=== PATIENT | male | born 1950 | race Caucasian/White ===

== ENCOUNTER 2017-11-07 13:07 | Inpatient (IN) | payer OTHER ==
[~2017-11-07] VITALS: Ht 180.3 cm; Wt 98.7 kg
[~2017-11-07 13:07] MED LIST: ALEVE220 M2 PO; ASPIRIN81 M2 PO; METFORMIN HCL500 MG PO; SIMVASTATIN10 MG PO; ULTRAM50 MG PO
[2017-11-07 13:40] LABS: HEMATOCRIT 45.9 % (38.0-50.0); HEMOGLOBIN 15.8 G/DL (12.5-16.6); MCH 29.8 PG (29.0-34.0); MCHC 34.4 G/DL (30.0-36.0); MCV 86.4 FL (86-99); PLATELET COUNT 211 K/uL (156-360); RBC DIS.WIDTH-CV 13.6 % (11.8-14.6); RBC DIS.WIDTH-SD 42.7 % (39-53); RED BLOOD COUNT 5.31 M/uL (4.00-5.50); WHITE BLOOD COUNT 9.8 K/uL (4.1-10.2)
[2017-11-07 13:45] LABS: CHLORIDE 107 mEq/L (99-109); POTASSIUM 3.8 mEq/L (3.7-5.4); SODIUM 140 mEq/L (136-147)
[2017-11-07 13:46] LABS: GLUCOSE 117 mg/dL (70-99)
[2017-11-07 13:50] LABS: CREATININE 1.2 mg/dL (0.6-1.3); GFR ESTIMATE (CALCULATED) > 59 mL/min/ (58.99-99999)
[2017-11-07 13:51] LABS: UREA NITROGEN (BUN) 14 mg/dL (9-23)
[2017-11-07 13:57] LABS: TROP-I INTERPRETATION POSITIVE
[2017-11-07 13:58] LABS: TROPONIN-I 7.75 ng/mL (0.0-0.30)
[2017-11-07 15:18] LABS: PTT 29.4 SEC (25-37)
[2017-11-07 16:43] LABS: HDL CHOLESTEROL 43 MG/DL (Desirable>=40); LDL CHOLESTEROL 170 mg/dL (Desirable<100); NON-HDL CHOLESTEROL 212 mg/dL (Desirable<160); TOTAL CHOLESTEROL 255 mg/dL (Desirable<200); TRIGLYCERIDES 211 MG/DL (Normal: <150)
[2017-11-07 19:05] VITALS: BP 151/96
[2017-11-07 22:05] LABS: TROP-I INTERPRETATION POSITIVE; TROPONIN-I 31.11 ng/mL (0.0-0.30)
[2017-11-07 23:22] VITALS: BP 128/82
[2017-11-08] VITALS (7 sets, daily range): BP systolic 99–121; BP diastolic 58–71
[2017-11-08 03:20] LABS: HEMATOCRIT 43.8 % (38.0-50.0); HEMOGLOBIN 15.2 G/DL (12.5-16.6); MCH 30.3 PG (29.0-34.0); MCHC 34.7 G/DL (30.0-36.0); MCV 87.3 FL (86-99); PLATELET COUNT 191 K/uL (156-360); RBC DIS.WIDTH-CV 13.9 % (11.8-14.6); RBC DIS.WIDTH-SD 44.8 % (39-53); RED BLOOD COUNT 5.02 M/uL (4.00-5.50); WHITE BLOOD COUNT 8.5 K/uL (4.1-10.2)
[2017-11-08 03:34] LABS: CHLORIDE 107 mEq/L (99-109); POTASSIUM 3.8 mEq/L (3.7-5.4); SODIUM 140 mEq/L (136-147)
[2017-11-08 03:35] LABS: GLUCOSE 147 mg/dL (70-99)
[2017-11-08 03:39] LABS: CREATININE 1.3 mg/dL (0.6-1.3); GFR ESTIMATE (CALCULATED) 59 mL/min/ (58.99-99999)
[2017-11-08 03:40] LABS: UREA NITROGEN (BUN) 14 mg/dL (9-23)
[2017-11-08 07:57] LABS: Estimated Average Glucose 151 mg/dL (70-123); HEMOGLOBIN A1c (GLYCOHEMOGLOB) 6.9 % HGB (Below 5.7)
[2017-11-09] VITALS: BP 115/66
[2017-11-09 00:50] LABS: INTER. NORMALIZED RATIO 1.1
[2017-11-09 00:52] LABS: PTT 50.9 SEC (25-37)
[2017-11-09 03:44] VITALS: BP 123/70
[2017-11-09 03:50] VITALS: BP 123/70
[2017-11-09] MEDS ORDERED: NITROSTAT0.4 MG SL (07:59)
[2017-11-09] MEDS ORDERED: VALSARTAN160 MG PO (07:59)
[2017-11-09] MEDS ORDERED: ASPIR-LOW81 MG PO (07:59)
[2017-11-09] MEDS ORDERED: TYLENOL REGULA325 MG PO (07:59)
[2017-11-09] MEDS ORDERED: morphine Sulfate IV (07:59)
[2017-11-09] MEDS ORDERED: LOPRESSOR50 MG PO (07:59)
[2017-11-09] MEDS ORDERED: ATORVASTATIN CA40 MG PO (07:59)
[2017-11-09] MEDS ORDERED: HEPARIN SO25000 UNIT IV (08:01)
[2017-11-09 08:35] VITALS: BP 132/76
== END 2017-11-09 10:24 | disposition short-term general hospital (02) | DRG 282 ==
LOC: EME 13:07 → 4EAST 15:22 → EDOF 15:22 → ENRESERV 15:23 → 4EAST 19:05
PROVIDERS: Emergency Medicine; Hospitalist; Internal Medicine Cardiovascular Disease
PROC: 4A023N7 Measurement of Cardiac Sampling and Pressure, Left Heart, Percutaneous Approach (ICD-10-PCS; principal; 2017-11-08)
PROC: B2151ZZ Fluoroscopy of Left Heart using Low Osmolar Contrast (ICD-10-PCS; principal; 2017-11-08)
PROC: B2111ZZ Fluoroscopy of Multiple Coronary Arteries using Low Osmolar Contrast (ICD-10-PCS; principal; 2017-11-08)
DX: I21.4 Non-ST elevation (NSTEMI) myocardial infarction (principal); I25.110 Atherosclerotic heart disease of native coronary artery with unstable angina pectoris; E78.5 Hyperlipidemia, unspecified; I10 Essential (primary) hypertension; R91.1 Solitary pulmonary nodule; E66.9 Obesity, unspecified; E11.9 Type 2 diabetes mellitus without complications; Z88.2 Allergy status to sulfonamides; Z68.30 Body mass index [BMI] 30.0-30.9, adult; Z79.84 Long term (current) use of oral hypoglycemic drugs; Z79.82 Long term (current) use of aspirin; Z79.02 Long term (current) use of antithrombotics/antiplatelets; Z83.3 Family history of diabetes mellitus; Z80.42 Family history of malignant neoplasm of prostate; Z80.0 Family history of malignant neoplasm of digestive organs
CPT/HCPCS: 71046; 80048; 80061; 83036; 84484; 85027; 85347; 85610; 85730; 93005; 93306; 99281; 99285; C1769; C1887; J1644; J2250; J3010; S0028

== ENCOUNTER → 2018-01-18 | Outpatient (CLI) | payer OTHER ==
[~2018-01-18] VITALS: Ht 180.3 cm; Wt 94.3 kg
[~2018-01-18] MED LIST changes: +ASPIR-LOW81 MG PO; +ATORVASTATIN CA40 MG PO; +CINNAMON500 MG PO; +FOLIC ACID0.4 MG PO; +GINKGO BILOBA40 MG PO; +HEPARIN SO25000 UNIT IV; +LOPRESSOR50 MG PO; +MAGNESIUM27 MG PO; +NITROSTAT0.4 MG SL; +SELENIUM50 MCG PO; +TOPROL XL25 MG PO; +TYLENOL REGULA325 MG PO; +VALSARTAN160 MG PO; +VITAMIN B-122000 MC1 PO; +VITAMIN B-6100 MG PO; +morphine Sulfate IV
== END | disposition home or self-care (01) ==
LOC: OPR 06:44 → EDSTATUS 08:00 → OPR 08:00
PROC: 0BJK3ZZ Inspection of Right Lung, Percutaneous Approach (ICD-10-PCS; principal; 2018-01-18)
DX: R91.1 Solitary pulmonary nodule (principal); Z53.09 Procedure and treatment not carried out because of other contraindication
CPT/HCPCS: 71250; 85027; 85610; 85730; J2270

== ENCOUNTER 2018-01-25 09:35 | Emergency (ER) | payer OTHER ==
[~2018-01-25] VITALS: Ht 180.3 cm; Wt 95.2 kg
[2018-01-25 10:24] LABS: HEMATOCRIT 43.9 % (38.0-50.0); HEMOGLOBIN 14.4 G/DL (12.5-16.6); MCH 27.5 PG (29.0-34.0); MCHC 32.8 G/DL (30.0-36.0); MCV 83.8 FL (86-99); PLATELET COUNT 225 K/uL (156-360); RBC DIS.WIDTH-CV 14.7 % (11.8-14.6); RBC DIS.WIDTH-SD 44.9 % (39-53); RED BLOOD COUNT 5.24 M/uL (4.00-5.50); WHITE BLOOD COUNT 8.9 K/uL (4.1-10.2)
[2018-01-25 10:34] LABS: CHLORIDE 106 mEq/L (99-109); POTASSIUM 4.5 mEq/L (3.7-5.4); SODIUM 140 mEq/L (136-147)
[2018-01-25 10:36] LABS: GLUCOSE 147 mg/dL (70-99)
[2018-01-25 10:40] LABS: CREATININE 1.2 mg/dL (0.6-1.3); GFR ESTIMATE (CALCULATED) > 59 mL/min/ (58.99-99999)
[2018-01-25 10:41] LABS: UREA NITROGEN (BUN) 23 mg/dL (9-23)
[2018-01-25] MEDS ORDERED: PERCOCET 5/31 TABLET PO (13:37)
[2018-01-25 17:18] LABS: APPEARANCE TURBID ((CLEAR)); BILIRUBIN NEGATIVE; BLOOD LARGE; COLOR AMBER ((YELLOW)); GLUCOSE (STRIP) NEGATIVE; KETONES 20; LEUKOCYTES NEGATIVE; NITRITE NEGATIVE; PROTEIN (STRIP) 100; SPECIFIC GRAVITY 1.019 (1.000-1.030); UROBILINOGEN 0.2 MG/DL (0.2-1.0)
[2018-01-25 17:22] VITALS: BP 151/82
[2018-01-25 17:51] LABS: RED BLOOD CELLS TNTC /HPF (0-5)
== END 2018-01-25 17:58 | disposition home or self-care (01) ==
LOC: EME 09:35
PROVIDERS: Family Medicine
DX: R10.11 Right upper quadrant pain (principal); R31.9 Hematuria, unspecified; C64.1 Malignant neoplasm of right kidney, except renal pelvis; C78.00 Secondary malignant neoplasm of unspecified lung; E11.9 Type 2 diabetes mellitus without complications; I10 Essential (primary) hypertension; F32.9 Major depressive disorder, single episode, unspecified; F41.9 Anxiety disorder, unspecified; Z95.1 Presence of aortocoronary bypass graft; Z88.2 Allergy status to sulfonamides
CPT/HCPCS: 74176; 80048; 81003; 85027; 99281; 99285; J1170; J2270; J2405; J7040; J7050